=== PATIENT | female | born 1995 | race Hispanic/Latino ===

== ENCOUNTER 2020-11-08 20:04 | Emergency (ER) | payer MEDICAID ==
[~2020-11-08] VITALS: Ht 157.5 cm; Wt 74.4 kg
[2020-11-08 20:38] VITALS: BP 122/77
[2020-11-08 20:40] LABS: BASOPHILS % (AUTO) 0.5 % (0.0-5.0); EOSINOPHILS % (AUTO) 1.8 % (0.0-8.0); HEMATOCRIT 37.7 % (36-48); LYMPHOCYTES % (AUTO) 26.5 % (21.0-51.0); MEAN CORPUSCULAR HEMOGLOBIN 30.2 pg (27.0-33.0); MEAN CORPUSCULAR HGB CONC 33.7 g/dL (32.0-36.0); MEAN CORPUSCULAR VOLUME 89.8 fL (79-99); MONOCYTES % (AUTO) 7.6 % (3.0-13.0); NEUTROPHILS % (AUTO) 63.3 % (40.0-77.0); PLATELET COUNT (AUTO) 427 K/uL (130-400); RED CELL DISTRIBUTION WIDTH 13.3 % (11.0-15.5); WHITE BLOOD COUNT (AUTO) 12.5 K/uL (4.8-10.8)
[2020-11-08 20:50] LABS: CREATININE 0.8 mg/dL (0.5-1.5); POTASSIUM 3.7 mmol/L (3.5-5.1)
[2020-11-08 21:01] LABS: ALBUMIN 4.1 g/dL (3.5-5.0); BILIRUBIN,TOTAL 0.2 mg/dL (0.2-1.0); TOTAL PROTEIN, SERUM 7.7 g/dL (6.0-8.3)
[2020-11-08] MEDS ORDERED: ONDANSETRON 4MG INJ ONE (21:46)
[2020-11-08] MEDS ORDERED: MORPHINE 4 MG SYG ONE (21:46)
[2020-11-08] MEDS ORDERED: ONDANSETRON 4MG INJ IVP ONE (22:00)
[2020-11-08] MEDS ORDERED: MORPHINE 4 MG SYG IV ONE (22:00)
[2020-11-08 22:51] VITALS: BP 117/57
[2020-11-08] MEDS ORDERED: KETOROLAC 30MG VIAL (30MG/ML) IV ONE (23:30)
[2020-11-08 23:39] VITALS: BP 117/57
== END 2020-11-09 00:08 | disposition home or self-care (01) ==
LOC: EDH 20:04
DX: N93.9 Abnormal uterine and vaginal bleeding, unspecified (principal); R10.2 Pelvic and perineal pain; Z88.0 Allergy status to penicillin
CPT/HCPCS: 36415; 76817; 80053; 84702; 85025; 96374; 96375; 99284; J1885; J2270; J2405

== ENCOUNTER 2021-08-06 01:24 | Emergency (ER) | payer MEDICAID ==
[~2021-08-06] VITALS: Ht 152.4 cm; Wt 81.6 kg
[2021-08-06 01:56] LABS: BASOPHILS % (AUTO) 0.4 % (0.0-5.0); EOSINOPHILS % (AUTO) 1.4 % (0.0-8.0); HEMATOCRIT 36.6 % (36-48); LYMPHOCYTES % (AUTO) 17.3 % (21.0-51.0); MEAN CORPUSCULAR HEMOGLOBIN 30.7 pg (27.0-33.0); MEAN CORPUSCULAR HGB CONC 35.5 g/dL (32.0-36.0); MEAN CORPUSCULAR VOLUME 86.5 fL (79-99); MONOCYTES % (AUTO) 7.3 % (3.0-13.0); NEUTROPHILS % (AUTO) 73.1 % (40.0-77.0); PLATELET COUNT (AUTO) 395 K/uL (130-400); RED BLOOD CELL COUNT(AUTO) 4.23 MIL/uL (4.00-5.50); WHITE BLOOD COUNT (AUTO) 13.7 K/uL (4.8-10.8)
[2021-08-06 03:10] VITALS: BP 121/76
== END 2021-08-06 03:22 | disposition home or self-care (01) ==
LOC: EDH 01:24
DX: O20.8 Other hemorrhage in early pregnancy (principal); Z88.0 Allergy status to penicillin; Z3A.10 10 weeks gestation of pregnancy
CPT/HCPCS: 36415; 76801; 85025; 86850; 86870; 86900; 86901

== ENCOUNTER 2021-09-02 22:44 | Emergency (ER) | payer MEDICAID ==
[~2021-09-02] VITALS: Ht 152.4 cm; Wt 84.4 kg
[2021-09-02] MEDS ORDERED: ONDANSETRON 4MG INJ ONE (23:23)
[2021-09-02 23:24] LABS: BASOPHILS % (AUTO) 0.2 % (0.0-5.0); EOSINOPHILS % (AUTO) 0.6 % (0.0-8.0); HEMATOCRIT 34.9 % (36-48); LYMPHOCYTES % (AUTO) 11.1 % (21.0-51.0); MEAN CORPUSCULAR HEMOGLOBIN 30.6 pg (27.0-33.0); MEAN CORPUSCULAR HGB CONC 35.5 g/dL (32.0-36.0); MEAN CORPUSCULAR VOLUME 86.2 fL (79-99); MONOCYTES % (AUTO) 6.7 % (3.0-13.0); NEUTROPHILS % (AUTO) 80.7 % (40.0-77.0); PLATELET COUNT (AUTO) 309 K/uL (130-400); RED BLOOD CELL COUNT(AUTO) 4.05 MIL/uL (4.00-5.50); WHITE BLOOD COUNT (AUTO) 12.4 K/uL (4.8-10.8)
[2021-09-02] MEDS ORDERED: ACETAMINOPHEN 500 MG TABLET ONE (23:24)
[2021-09-02 23:25] LABS: APPEARANCE,URINE Cloudy (CLEAR); BILIRUBIN,URINE Negative (NEGATIVE); COLOR,URINE Yellow (YELLOW); GLUCOSE, URINE (UA) Negative (NEGATIVE); KETONES,URINE 15 mg/dL (NEGATIVE); LEUKOCYTE ESTERASE ,URINE Trace (NEGATIVE); NITRATE,URINE Negative (NEGATIVE); OCCULT BLOOD,URINE Negative (NEGATIVE); PROTEIN,URINE Trace mg/dL (NEGATIVE)
[2021-09-02 23:28] LABS: HCG,QUAL RESULT POSITIVE (NEGATIVE)
[2021-09-02] MEDS ORDERED: ACETAMINOPHEN 500 MG TABLET PO ONE (23:30)
[2021-09-02] MEDS ORDERED: ONDANSETRON 4MG INJ IVP ONE (23:30)
[2021-09-02] MEDS ORDERED: 0.9%NACL 1000ML 1,000 ML IV SCH (23:30)
[2021-09-02 23:36] LABS: BACTERIA,URINE None Seen /HPF (None Seen); RBC,URINE None Seen /HPF (0-1); SQUAMOUS EPITHELIAL CELL,UR Moderate /HPF (0-2)
[2021-09-02 23:41] LABS: CARBON DIOXIDE 21 mmol/L (21-32); CHLORIDE 101 mmol/L (101-111); CREATININE 0.4 mg/dL (0.5-1.5); GLOMERULAR FILTR. RATE CALC 205 mL/min (>60); GLUCOSE,RANDOM 89 mg/dL (70-105); POTASSIUM 3.4 mmol/L (3.5-5.1); SODIUM SERUM 135 mmol/L (136-145); UREA NITROGEN, BLOOD 4 mg/dL (7-18)
[2021-09-02 23:43] LABS: ALANINE AMINOTRANSFERASE 30 U/L (12-78); ALBUMIN 3.1 g/dL (3.5-5.0); ASPARTATE AMINOTRANSFERASE 23 U/L (10-37); BILIRUBIN,TOTAL 0.3 mg/dL (0.2-1.0); TOTAL PROTEIN, SERUM 6.8 g/dL (6.0-8.3)
[2021-09-02 23:44] LABS: LIPASE < 50 U/L (114-286)
[2021-09-03] MEDS ORDERED: ONDA22I PO (01:09)
[2021-09-03 01:18] VITALS: BP 121/71
== END 2021-09-03 01:33 | disposition home or self-care (01) ==
LOC: EDH 22:44
DX: O21.9 Vomiting of pregnancy, unspecified (principal); Z88.0 Allergy status to penicillin; Z3A.15 15 weeks gestation of pregnancy
CPT/HCPCS: 36415; 80053; 81001; 81025; 83690; 85025; 96361; 96374; 99283; J2405; J7030

== ENCOUNTER 2022-12-28 20:11 | Emergency (ER) | payer MEDICAID, OTHER ==
[~2022-12-28] VITALS: Ht 154.9 cm; Wt 90.7 kg
[~2022-12-28 20:11] MED LIST: ONDA22I PO
[2022-12-28 20:45] VITALS: BP 121/81; PULSE 112; RESP 20; O2SAT 98
[2022-12-28] MEDS ORDERED: ONDANSETRON ODT 4MG TAB SL ONE (21:00)
[2022-12-28 21:05] LABS: RAPID GROUP A STREP negative (NEGATIVE); SARS-CoV-2, RNA, NAAT NEGATIVE SARS CoV-2 (NEGATIVE)
[2022-12-28 21:31] LABS: INFLUENZA TYPE A Negative For Type A (NEGATIVE); INFLUENZA TYPE B Negative For Type B (NEGATIVE)
[2022-12-28] MEDS ORDERED: ONDA4TAB10 PO (21:52)
[2022-12-28] MEDS ORDERED: [UNRECOGNIZED DRUG - OTHER] PO (21:52)
== END 2022-12-28 22:05 | disposition home or self-care (01) ==
LOC: EDH 20:11
DX: K25.9 Gastric ulcer, unspecified as acute or chronic, without hemorrhage or perforation (principal); R11.0 Nausea; Z20.822 Contact with and (suspected) exposure to COVID-19; Z90.89 Acquired absence of other organs; Z88.0 Allergy status to penicillin
CPT/HCPCS: 99283; 87635; 87880; 87804 ×2; C9803

== ENCOUNTER 2023-04-29 23:37 | Emergency (ER) | payer OTHER ==
[~2023-04-29] VITALS: Ht 152.4 cm; Wt 90.7 kg
[~2023-04-29 23:37] MED LIST changes: +ONDA4TAB10 PO; +[UNRECOGNIZED DRUG - OTHER] PO
[2023-04-29 23:39] VITALS: BP 122/67; PULSE 79; RESP 20
== END 2023-04-30 00:20 | disposition left against medical advice (07) ==
LOC: EDH 23:37
DX: R42 Dizziness and giddiness (principal); R10.12 Left upper quadrant pain; Z53.21 Procedure and treatment not carried out due to patient leaving prior to being seen by health care provider
CPT/HCPCS: 99281

== ENCOUNTER 2023-05-09 21:49 | Emergency (ER) | payer OTHER ==
[~2023-05-09] VITALS: Ht 154.9 cm; Wt 86.6 kg
[2023-05-09 22:38] LABS: BASOPHILS # (AUTO) 0.04 K/uL (0.00-0.20); BASOPHILS % (AUTO) 0.5 % (0.0-5.0); EOSINOPHILS % (AUTO) 2.3 % (0.0-8.0); HEMATOCRIT 39.3 % (36-48); IMMATURE GRANULOCYTE ABSOLUTE 0.02 K/uL (0-1); LYMPHOCYTES # (AUTO) 2.2 K/uL (1.0-4.8); LYMPHOCYTES % (AUTO) 25.9 % (21.0-51.0); MEAN CORPUSCULAR HEMOGLOBIN 29.5 pg (27.0-33.0); MEAN CORPUSCULAR HGB CONC 34.4 g/dL (32.0-36.0); MONOCYTES # (AUTO) 0.6 K/uL (0.1-1.0); MONOCYTES % (AUTO) 6.5 % (3.0-13.0); NEUTROPHILS # (AUTO) 5.6 K/uL (1.8-7.7); NEUTROPHILS % (AUTO) 64.6 % (40.0-77.0); PLATELET COUNT (AUTO) 378 K/uL (130-400); RED BLOOD CELL COUNT(AUTO) 4.57 MIL/uL (4.00-5.50); RED CELL DISTRIBUTION WIDTH 12.3 % (11.0-15.5); WHITE BLOOD COUNT (AUTO) 8.6 K/uL (4.8-10.8)
[2023-05-09 22:50] LABS: CREATININE 0.7 mg/dL (0.5-1.5); POTASSIUM 3.9 mmol/L (3.5-5.1)
[2023-05-09 22:54] LABS: ALBUMIN 4.1 g/dL (3.5-5.0); BILIRUBIN,TOTAL 0.5 mg/dL (0.2-1.0); TOTAL PROTEIN, SERUM 7.7 g/dL (6.0-8.3)
[2023-05-09 23:01] LABS: B-TYPE NATRIURETIC PEPTIDE 8 pg/mL (0-100)
[2023-05-09] MEDS: DiphenhydrAMINE HCL 50 MG/ML VIAL IV ONE (23:15)
[2023-05-09] MEDS: KETOROLAC 30MG VIAL (30MG/ML) IVP ONE (23:15)
[2023-05-09] MEDS: METOCLOPRAMIDE 10 MG/2 ML VIAL IVP ONE (23:15)
[2023-05-10] MEDS ORDERED: IBUP-1493 PO (00:19)
[2023-05-10 00:44] VITALS: BP 137/87; PULSE 72; RESP 16; O2SAT 100
== END 2023-05-10 00:48 | disposition home or self-care (01) ==
LOC: EDH 21:49
DX: G43.909 Migraine, unspecified, not intractable, without status migrainosus (principal); Z79.899 Other long term (current) drug therapy; Z90.89 Acquired absence of other organs; Z98.890 Other specified postprocedural states; Z88.0 Allergy status to penicillin
CPT/HCPCS: 99285; 96374; 71045; 96375; 84484 ×2; 80053; 83880; 85025; 85378; 36415; 93005; J1200; J1885; J2765